=== PATIENT | female | born 1970 | race Caucasian/White ===

== ENCOUNTER 2023-03-29 08:49 | Inpatient (IN) ==
[~2023-03-29 08:49] MED LIST: Buffered Lidocaine 1% SYRIN 1 ml INTRADERM ONE; HYDROcodone/ACETAMIN 5/325 mg TAB PO PRN; Lactated Ringers 1000 ml BAG 1,000 ML IV SCH; Metoclopramide 5 MG/ML VIAL (10 mg) IV PRN; Naloxone 0.4 mg VIAL 0.4 mg/ml 1 ml VIAL IV PRN; Ondansetron 4 mg VIAL 2 MG/ML 2 ml VIAL IV PRN; fentaNYL 100 mcg/2 ml 50 MCG/ML VIAL IV PRN
[2023-03-29] MEDS ORDERED: Heparin 5000 UNITS/ML 1 mL VIAL ONE (09:08)
[2023-03-29] MEDS ORDERED: Scopolamine 1 mg/72hr PATCH ONE (09:09)
[2023-03-29] MEDS ORDERED: ceFAZolin *3* GM in NS PREMIX 3 GM/100 ML BAG IV ONE (09:09)
[2023-03-29 09:47] LABS: Rapid COVID-19 Molecular Undetected (Undetected)
[2023-03-29] MEDS ORDERED: Propofol 10 MG/ML 20 ML BTL ONE (09:59)
[2023-03-29] MEDS ORDERED: Ondansetron 4 mg VIAL 2 MG/ML 2 ml VIAL ONE (09:59)
[2023-03-29] MEDS ORDERED: Glycopyrrolate IV 0.2 MG/ML 1 ML VIAL ONE (09:59)
[2023-03-29] MEDS ORDERED: Dexamethasone IV 4 MG/ML VIAL 1 ml VIAL ONE ×2 (09:59→10:48)
[2023-03-29] MEDS ORDERED: fentaNYL 100 mcg/2 ml 50 MCG/ML VIAL ONE ×2 (10:01→13:55)
[2023-03-29] MEDS ORDERED: HYDROmorphone 0.5 MG/0.5 ML SYRINGE ONE (10:02)
[2023-03-29] MEDS ORDERED: Midazolam 2 mg/2 ml VIAL 1 mg/ml 2 ml VIAL (2 mg) ONE (10:02)
[2023-03-29] MEDS ORDERED: Rocuronium 50 mg VIAL 10 mg/ml 5 ml VIAL (50 mg) ONE ×2 (10:03→11:43)
[2023-03-29] MEDS ORDERED: Lidocaine 2% PF 5 ML VIAL ONE (10:07)
[2023-03-29] MEDS ORDERED: Lidocaine 1% w EPI 1:200,000 SDV 30 ML VIAL ONE (10:18)
[2023-03-29] MEDS ORDERED: Bupivacaine 0.5% SDV PF 30ML VIAL ONE (10:18)
[2023-03-29] MEDS ORDERED: Phenylephrine 40 mcg/mL 10mL (400mcg) SYRINGE ONE (11:06)
[2023-03-29] MEDS ORDERED: Ondansetron 4 mg VIAL 2 MG/ML 2 ml VIAL IV PRN (12:56)
[2023-03-29] MEDS ORDERED: HYDROmorphone 0.5 MG/0.5 ML SYRINGE IV SLOW PU PRN (12:56)
[2023-03-29] MEDS ORDERED: Famotidine IV 10 MG/ML 2 ml VIAL (20 mg) IV SLOW PU PRN (12:56)
[2023-03-29] MEDS ORDERED: HYDROcodone/ACET. 7.5/325 LIQ 15 ML UDC PO PRN (12:56)
[2023-03-29] MEDS: Lactated Ringers 1000 ml BAG 1,000 ML IV SCH ×2 (14:40→22:29)
[2023-03-29] MEDS: Heparin 5000 UNITS/ML 1 mL VIAL SUBCUT SCH (22:09)
[2023-03-30] MEDS: Lactated Ringers 1000 ml BAG 1,000 ML IV SCH (05:10)
[2023-03-30] MEDS: Heparin 5000 UNITS/ML 1 mL VIAL SUBCUT SCH ×2 (06:14→14:12)
[2023-03-30] MEDS ORDERED: D5W 1/2 NS KCl 20 meq 1000 ml 1,000 ML IV SCH (13:00)
[2023-03-30 13:59] VITALS: BP 113/66
== END 2023-03-30 16:55 | disposition home or self-care (01) | DRG 951 ==
LOC: AA 08:49 → EDSTATUS 10:30 → SSU 14:36
PROVIDERS: ADMIT Surgery; ATTEND Surgery